=== PATIENT | female | born 1970 | race Two or more races ===

== ENCOUNTER 2019-10-12 10:20 | Emergency (ER) | payer BC ==
[~2019-10-12] VITALS: Ht 157.5 cm; Wt 81.6 kg
[2019-10-12 10:20] VITALS: BP_SYST 118
[~2019-10-12 10:20] MED LIST: CEL20
--- NOTE | 2019-10-12 10:20 | NUR ---
BROUGHT BACK TO BED #7 AND TRIAGED. REPORT GIVEN TO KOLBY
--- NOTE | 2019-10-12 10:40 | NUR ---
Patient arrived via POV, accompanied by spouse. Patient c/c of lower back pain. Patient states pain began last Sunday, and worsened through the week. Patient states by Sunday it was becoming unbearable. Patient went to chiropractor yesterday and was adjusted and she stated when they adjusted her in the midback it cracked and she screamed out. She experienced stiffness following adjustment, and went to get a massage. She is currently experiencing stiffness to back, difficulty picking up her right leg and states right lateral leg heaviness. States her pain feels like a muscle spasm. Patient has taken Ibuprofen, [place], and Percocet with no relief. Patient notes no recent injury or fall, but she did hike 5 miles one week ago. Patient states pain is relieved when laying flat with knees pulled up, warm blanket applied to lower back by triage nurse. Will continue to follow up and monitor.
--- NOTE | 2019-10-12 10:52 | NUR ---
ER at bedside examining patient.
[2019-10-12] MEDS: KETOROLAC TROMETHAMINE 30 MG VIAL IM ONE (11:39)
[2019-10-12] MEDS: CYCLOBENZAPRINE HCL 10 MG TABLET (FLEXERIL) PO ONE (11:39)
--- NOTE | 2019-10-12 12:14 | NUR ---
Patient resting comfortably. Needs are met at this time. Will continue to follow up and monitor.
[2019-10-12 12:36] LABS: HCG,QUAL RESULT NEGATIVE (NEGATIVE)
[2019-10-12 12:59] VITALS: BP_SYST 110
--- NOTE | 2019-10-12 13:00 | NUR ---
Patient given written and verbal discharge instructions and verbalizes understanding. ER MD discussed with patient the results and treatment provided. Patient in stable condition. ID arm band removed. Rx of Flexeril and Ibuprofen given. Patient educated on pain management and to follow up with PMD. Pain Scale 3/10. Opportunity for questions provided and answered. Medication side effect fact sheet provided.
== END 2019-10-12 12:59 | disposition home or self-care (01) ==
LOC: SED 10:20
DX: M54.5 Low back pain (principal)
CPT/HCPCS: 81025; 84703; 96372; 99283; J1885

== ENCOUNTER 2019-10-16 18:14 | Emergency (ER) | payer BC ==
[~2019-10-16] VITALS: Ht 157.5 cm; Wt 81.6 kg
[2019-10-16 18:22] VITALS: BP_SYST 125
[2019-10-16] MEDS ORDERED: KETOROLAC TROMETHAMINE 30 MG VIAL IVP ONE (20:15)
[2019-10-16 21:16] LABS: BASOPHILS % (AUTO) 0.5 % (0.0-2.0); EOSINOPHILS # (AUTO) 0.2 K/uL (0.0-0.4); EOSINOPHILS % (AUTO) 3.4 % (0.0-4.0); HEMATOCRIT 39.9 % (36-48); HEMOGLOBIN 13.1 g/dL (12.0-16.0); LYMPHOCYTES # (AUTO) 2.3 K/uL (1.0-5.5); MEAN CORPUSCULAR HEMOGLOBIN 31 pg (27-31); MEAN CORPUSCULAR HGB CONC 33 % (32-36); MEAN CORPUSCULAR VOLUME 94 fL (79.0-98.0); MONOCYTES # (AUTO) 0.6 K/uL (0.0-1.0); MONOCYTES % (AUTO) 9.7 % (1.7-9.3); NEUTROPHILS % (AUTO) 49.4 % (40.0-70.0); PLATELET COUNT (AUTO) 177 K/uL (130-430); RED BLOOD CELL COUNT(AUTO) 4.26 MIL/uL (4.2-6.2); RED CELL DISTRIBUTION WIDTH 12.8 % (9.0-15.0); WHITE BLOOD COUNT (AUTO) 6.1 K/uL (4.8-10.8)
[2019-10-16] MEDS ORDERED: MORPHINE 4 MG/ML INJ. SYRINGE IVP ONE ×2 (21:45→23:45)
[2019-10-16] MEDS ORDERED: ONDANSETRON HCL 4 MG/2 ML VIAL IVP ONE (21:45)
[2019-10-16 21:53] LABS: HCG,QUAL RESULT NEGATIVE (NEGATIVE)
[2019-10-16 22:27] LABS: CALCIUM 8.5 mg/dL (8.4-11.0); CREATININE 0.88 mg/dL (0.55-1.30); POTASSIUM 3.6 mmol/L (3.5-5.1)
[2019-10-16 22:32] LABS: ALBUMIN 3.8 g/dL (3.4-4.8); TOTAL BILIRUBIN 0.4 mg/dL (0.0-1.0)
[2019-10-16 22:33] LABS: BILIRUBIN,URINE NEGATIVE (NEGATIVE); BLOOD, URINE NEGATIVE (NEGATIVE); CLARITY/URINE CLEAR (CLEAR); COLOR,URINE YELLOW (YELLOW); GLUCOSE,URINE NEGATIVE (NEGATIVE); KETONES,URINE NEGATIVE (NEGATIVE); LEUKOCYTE ESTERASE ,URINE NEGATIVE (NEGATIVE); NITRITE, URINE NEGATIVE (NEGATIVE); PROTEIN URINE NEGATIVE (NEGATIVE); UROBILINOGEN,URINE 0.2 (0.2-1.0)
[2019-10-17 00:45] VITALS: BP_SYST 121
== END 2019-10-17 00:45 | disposition home or self-care (01) ==
LOC: SED 18:14
DX: N83.201 Unspecified ovarian cyst, right side (principal); R10.31 Right lower quadrant pain; M54.5 Low back pain
CPT/HCPCS: 36415; 72110; 74176; 80053; 81003; 83690; 84703; 85025; 96374; 96375; 96376; 99284; J1885; J2270; J2405